=== PATIENT | male | born 1955 | race Caucasian/White ===

== ENCOUNTER 2023-08-04 10:24 | Observation (INO) | payer OTHER ==
[2023-08-04 11:17] LABS: #Basophils 0.1 thou/uL (0.0-0.2); #Eosinphils 0.7 thou/uL (0.0-0.7); #Monocytes 0.7 thou/uL (0.11-0.59); #Neutrophils 3.8 thou/uL (1.40-6.50); %Basophils 0.7 % (0.0-1.0); %Eosinophils 9.1 % (0.0-10.0); %Lymphocytes 30.2 % (21.0-51.0); %Monocytes 8.7 % (0.0-10.0); Hematocrit 41.1 % (42.0-52.0); Hemoglobin 13.9 g/dL (14.0-18.0); Mean Corpuscular HGB CONC 33.8 g/dL (32.0-36.0); Mean Corpuscular Hemoglobin 30.8 pg (27.0-31.0); Mean Corpuscular Volume 90.9 fl (78.0-98.0); Mean Platelet Volume 9.7 fL (7.4-10.4); Platelet Count 243 10x3/uL (130-400); Red Blood Cell (RBC) Count 4.52 mill/uL (4.70-6.10); White Blood Cell (WBC) Count 7.5 10x3/uL (4.8-10.8)
[2023-08-04 11:32] LABS: PTT 33.2 sec (22.9-36.1)
[2023-08-04 11:39] LABS: ALT (SGPT) 33 U/L (8-55); AST (SGOT) 27 U/L (5-34); Albumin 4.5 g/dL (3.4-4.8); Alkaline Phosphatase 136 U/L (40-110); Anion Gap 15 mmol/L (10-20); BUN (Urea Nitrogen) 13 mg/dL (8.4-25.7); Bilirubin, Total 0.4 mg/dL (0.2-1.2); Calc. Creatinine Clearance 0 mL/min (70-130); Calcium 9.8 mg/dL (7.8-10.44); Carbon Dioxide 26 mmol/L (23-31); Chloride 103 mmol/L (98-107); Estimated GFR 92; Globulin 2.8 g/dL (2.4-3.5); Glucose 104 mg/dL (80-115); Protein, Total 7.3 g/dL (5.8-8.1); Sodium 140 mmol/L (136-145)
[2023-08-04 11:43] LABS: Troponin I Less than 0.010 ng/mL (< 0.028)
[2023-08-04 12:45] LABS: Bacteria/HPF None Seen HPF (None Seen); Bilirubin Negative (Negative); Blood, Urine Negative (Negative); CAUTI Indications for Culture Alt mental st,lethar; Clarity Clear (Clear); Glucose, Urine (Dipstick) Normal (Negative); Ketone, Urine Negative (Negative); Leukocyte Negative Leu/uL (Negative); Nitrite Negative (Negative); Protein, Urine (Dipstick) Negative (Neg-Trace); RBC/HPF 0-3 HPF (0-3); Specific Gravity, Urine 1.007 (1.002-1.036); Squamous Epithelial None Seen HPF (0-3); Urobilinogen Normal mg/dL (Less than 2); WBC/HPF 0-3 HPF (0-3)
[2023-08-04 12:47] LABS: Urine Culture Reflex No No
[2023-08-04] MEDS ORDERED: Senokot S 8.6-50 MG TAB PO PRN (13:27)
[2023-08-04] MEDS ORDERED: Calcium Carbonate 500 MG ChewTAB PO PRN (13:27)
[2023-08-04] MEDS ORDERED: Acetaminophen 325 MG TAB PO PRN (13:27)
[2023-08-04] MEDS ORDERED: Nicotine 14 MG PATCH TD SCH (13:30)
[2023-08-04] MEDS ORDERED: Ipratropium/Albuterol 3 ML NEB NEB PRN (13:33)
[2023-08-04] MEDS ORDERED: Aspirin Chewable 81 MG TAB ONE (13:36)
[2023-08-04 13:56] LABS: Hemoglobin A1c 5.3 % (4.0-6.0)
[2023-08-04] MEDS ORDERED: Ibuprofen 800 MG TAB PO PRN (14:17)
[2023-08-04 16:14] VITALS: BMI 27.3
[2023-08-04] MEDS: Diclofenac 1% 50 GM TOPICAL GEL TP SCH ×2 (17:25→20:38)
[2023-08-04] MEDS: Ipratropium Bromide 2.5 ml Neb NEB SCH (19:05)
[2023-08-04] MEDS: Ketotifen Fumarate 0.025% Ophth Soln 5 ml Bottle EA EYE SCH (20:36)
[2023-08-04] MEDS: busPIRone HCl 10 MG TAB PO SCH (20:37)
[2023-08-04] MEDS: Ferrous Sulfate 325 MG TAB PO SCH (20:37)
[2023-08-04] MEDS ORDERED: Prazosin HCl 1 MG CAP PO SCH (21:00)
[2023-08-05] MEDS: Ipratropium Bromide 2.5 ml Neb NEB SCH ×3 (00:17→13:19)
[2023-08-05 05:30] LABS: #Basophils 0.1 thou/uL (0.0-0.2); #Eosinphils 0.6 thou/uL (0.0-0.7); #Monocytes 0.6 thou/uL (0.11-0.59); #Neutrophils 3.4 thou/uL (1.40-6.50); %Basophils 0.7 % (0.0-1.0); %Eosinophils 8.3 % (0.0-10.0); %Lymphocytes 37.5 % (21.0-51.0); %Monocytes 8.4 % (0.0-10.0); %Neutrophils 44.8 % (42.0-75.0); Hematocrit 37.9 % (42.0-52.0); Hemoglobin 12.6 g/dL (14.0-18.0); Mean Corpuscular HGB CONC 33.2 g/dL (32.0-36.0); Mean Corpuscular Hemoglobin 30.8 pg (27.0-31.0); Mean Corpuscular Volume 92.7 fl (78.0-98.0); Mean Platelet Volume 9.5 fL (7.4-10.4); Platelet Count 229 10x3/uL (130-400); RBC Distribution Width 12.1 % (11.5-14.5); Red Blood Cell (RBC) Count 4.09 mill/uL (4.70-6.10); White Blood Cell (WBC) Count 7.5 10x3/uL (4.8-10.8)
[2023-08-05 05:52] LABS: Anion Gap 13 mmol/L (10-20); BUN (Urea Nitrogen) 15 mg/dL (8.4-25.7); Calc. Creatinine Clearance 90 mL/min (70-130); Carbon Dioxide 23 mmol/L (23-31); Cardiac Risk 3.7 (Less than 4.5); Chloride 101 mmol/L (98-107); Cholesterol 117 mg/dl (< 200 Desired); Estimated GFR 81; Glucose 96 mg/dL (80-115); HDL Cholesterol 32 mg/dL (>60 Neg Risk); LDL Cholesterol, Calculated 56 mg/dL; Potassium 3.4 mmol/L (3.5-5.1); Sodium 134 mmol/L (136-145); Triglycerides 144 mg/dL (Less than 150)
[2023-08-05 07:10] LABS: Phosphorus 4.4 mg/dL (2.3-4.7)
[2023-08-05] MEDS ORDERED: Potassium Chloride 20 MEQ TAB PO SCH (07:15)
[2023-08-05] MEDS ORDERED: Nicotine 14 MG PATCH TD PRN (08:06)
[2023-08-05 08:12] VITALS: TEMP 97.6
[2023-08-05] MEDS: Ferrous Sulfate 325 MG TAB PO SCH (08:24)
[2023-08-05] MEDS: busPIRone HCl 10 MG TAB PO SCH (08:24)
[2023-08-05 08:28] LABS: Magnesium 1.9 mg/dL (1.6-2.6)
[2023-08-05] MEDS ORDERED: Amlodipine 10 MG TAB PO SCH (09:00)
[2023-08-05] MEDS ORDERED: Fish Oil 1,000 MG CAP PO SCH (09:00)
[2023-08-05] MEDS ORDERED: Aspirin 81 mg Enteric Coated Tablet PO SCH (09:00)
[2023-08-05] MEDS ORDERED: Zinc Sulfate 220 MG CAP PO SCH (09:00)
[2023-08-05] MEDS ORDERED: Loratadine 10 MG TAB PO SCH (09:00)
[2023-08-05] MEDS ORDERED: Methocarbamol 500 MG TAB PO SCH (09:00)
[2023-08-05] MEDS ORDERED: Tamsulosin HCl 0.4 MG CAP PO SCH (09:00)
[2023-08-05] MEDS ORDERED: Fluticasone Propionate Nasal Spray 16 gm Bottle NASAL SCH (09:00)
[2023-08-05] MEDS ORDERED: guaiFENesin 200 MG TAB PO SCH (09:00)
[2023-08-05] MEDS ORDERED: Finasteride 5 MG TAB PO SCH (09:00)
[2023-08-05] MEDS: Diclofenac 1% 50 GM TOPICAL GEL TP SCH ×2 (09:52→13:56)
[2023-08-05] MEDS: Ketotifen Fumarate 0.025% Ophth Soln 5 ml Bottle EA EYE SCH (09:52)
[2023-08-05] MEDS ORDERED: Acetaminophen 325 MG TAB PO PRN (11:29)
[2023-08-05] MEDS ORDERED: Magnesium 2 GM/50 ML(in water) 2 GM in Premix Bag 1 BAG IVPB SCH (12:30)
[2023-08-05 13:34] LABS: Anion Gap 14 mmol/L (10-20); BUN (Urea Nitrogen) 14 mg/dL (8.4-25.7); Calc. Creatinine Clearance 96 mL/min (70-130); Calcium 9.2 mg/dL (7.8-10.44); Carbon Dioxide 22 mmol/L (23-31); Chloride 105 mmol/L (98-107); Estimated GFR 88; Glucose 103 mg/dL (80-115); Sodium 137 mmol/L (136-145)
[2023-08-05 15:40] VITALS: BP 136/86
[2023-08-05] MEDS ORDERED: Atorvastatin Calcium 40 MG TAB PO SCH (21:00)
== END 2023-08-05 17:40 | disposition home or self-care (01) ==
LOC: ERS 10:24 → 2SE 13:06
PROVIDERS: ADMIT Family Medicine; ATTEND Family Medicine
DX: R53.1 Weakness (principal); D64.9 Anemia, unspecified; E87.6 Hypokalemia; J44.9 Chronic obstructive pulmonary disease, unspecified; I08.8 Other rheumatic multiple valve diseases; I25.10 Atherosclerotic heart disease of native coronary artery without angina pectoris; F17.200 Nicotine dependence, unspecified, uncomplicated; I10 Essential (primary) hypertension; E78.5 Hyperlipidemia, unspecified; N40.0 Benign prostatic hyperplasia without lower urinary tract symptoms; F43.10 Post-traumatic stress disorder, unspecified; R94.31 Abnormal electrocardiogram [ECG] [EKG]; Z79.899 Other long term (current) drug therapy; Z79.82 Long term (current) use of aspirin
CPT/HCPCS: 36415; 70450; 70551; 71045; 80048; 80053; 80061; 81001; 83036; 83735; 84100; 84443; 84484; 85025; 85610; 85730; 93005; 93306; 94640; 96372; 96374; G0378; J1650; J3475

== ENCOUNTER 2024-04-29 11:44 | Emergency (ER) | payer OTHER ==
[2024-04-29 12:09] LABS: #Basophils 0.04 10x3/uL (0.0-0.2); %Basophils 0.5 % (0.0-1.0); %Lymphocytes 22.5 % (21.0-51.0); %Monocytes 7.7 % (0.0-10.0); Hematocrit 38.6 % (42.0-52.0); Hemoglobin 13.2 g/dL (14.0-18.0); Mean Corpuscular HGB CONC 34.2 g/dL (32.0-36.0); Mean Corpuscular Hemoglobin 30.5 pg (27.0-31.0); Mean Corpuscular Volume 89.1 fL (78.0-98.0); Mean Platelet Volume 9.7 fL (7.4-10.4); Platelet Count 221 10x3/uL (130-400); RBC Distribution Width 13.4 % (11.5-14.5); Red Blood Cell (RBC) Count 4.33 mill/uL (4.70-6.10)
[2024-04-29 12:22] LABS: ALT (SGPT) 23 U/L (8-55); AST (SGOT) 20 U/L (5-34); Albumin 3.9 g/dL (3.4-4.8); Alkaline Phosphatase 132 U/L (40-110); Anion Gap 14 mmol/L (10-20); BUN (Urea Nitrogen) 14 mg/dL (8.4-25.7); Bilirubin, Total 0.5 mg/dL (0.2-1.2); Calc. Creatinine Clearance 0 mL/min (70-130); Calcium 8.9 mg/dL (7.8-10.44); Carbon Dioxide 23 mmol/L (23-31); Chloride 107 mmol/L (98-107); Estimated GFR 96; Globulin 2.9 g/dL (2.4-3.5); Glucose 110 mg/dL (80-115); Potassium 3.5 mmol/L (3.5-5.1); Protein, Total 6.8 g/dL (5.8-8.1); Sodium 140 mmol/L (136-145)
[2024-04-29 12:28] LABS: Troponin I Less than 0.010 ng/mL (< 0.028)
== END 2024-04-29 14:05 | disposition home or self-care (01) ==
LOC: ERS 11:44
DX: I95.9 Hypotension, unspecified (principal); D64.9 Anemia, unspecified; I71.20 Thoracic aortic aneurysm, without rupture, unspecified; E78.00 Pure hypercholesterolemia, unspecified; I10 Essential (primary) hypertension; Z87.891 Personal history of nicotine dependence; Z79.82 Long term (current) use of aspirin; Z79.899 Other long term (current) drug therapy
CPT/HCPCS: 71275; 74174; 80053; 84484; 85025; 93005